=== PATIENT | female | born 1990 | race Caucasian/White ===

== ENCOUNTER → 2020-06-30 11:42 | Outpatient (BNVA) | payer OTHER, SELFPAY | PROVIDERS: Visit Provider Physician Assistant | DX: S43.109A Unspecified dislocation of unspecified acromioclavicular joint, initial encounter (principal) | CPT/HCPCS: 99202 ==

== ENCOUNTER → 2020-08-19 09:09 | Outpatient (BNVA) | payer OTHER, SELFPAY | PROVIDERS: PCP Family Medicine; Visit Provider Physician Assistant | DX: S43.109D Unspecified dislocation of unspecified acromioclavicular joint, subsequent encounter (principal) | CPT/HCPCS: 99212 ==